=== PATIENT | male | born 1980 | race Caucasian/White ===

== ENCOUNTER 2024-04-26 12:16 | Emergency (ER) | payer SELFPAY ==
[2024-04-26 12:18] VITALS: BP 109/69
[2024-04-26 13:33] VITALS: BMI 19.9
[2024-04-26] MEDS: OMNIPAQUE 50 ML PO (13:36)
[2024-04-26] MEDS: ZOFRAN 4 MG IV (13:46)
[2024-04-26 13:48] LABS: % Basophils 0.3 % (0-2); % Eosinophils 1.1 % (0-6); % Immature Granulocytes 0.3 % (0-0.5); % Lymphocytes 18.4 % (20.5-51.1); % Monocytes 7.2 % (1.7-9.3); % Neutrophils 72.7 % (42.2-75.2); Absolute Eosinophils 0.1 10^3/uL (0-0.7); Absolute Lymphocytes 1.7 10^3/uL (1.2-3.4); Absolute Monocytes 0.7 10^3/uL (0.1-0.6); Absolute Neutrophils 6.6 10^3/uL (1.4-6.5); Hematocrit 39.3 % (39.0-52.0); Hemoglobin 13.5 g/dL (13.0-18.0); Mean Corp Hgb Conc. 34.4 g/dL (33.0-37.0); Mean Corpuscular Hgb 29.2 pg (27.0-31.0); Mean Corpuscular Volume 84.9 fL (80.0-94.0); Mean Platelet Volume 11.1 fL (7.4-10.4); Nucleated Red Blood Cells % 0 % (-); Platelet Count 176 10^3/uL (130-400); Red Blood Cell Count 4.63 10^6/uL (4.70-6.10); Red Cell Dist. Width 13.2 % (11.5-14.5); White Blood Cell Count 9.1 10^3/uL (4.8-10.8)
[2024-04-26 13:53] LABS: Urine Albumin Negative (Neg - Trace); Urine Bilirubin Negative (Negative); Urine Character Clear (Clear); Urine Color Yellow; Urine Glucose Negative (Negative); Urine Ketone Negative (Negative); Urine Leukocyte Negative (Negative); Urine Nitrite Negative (Negative); Urine Occult Blood Negative (Negative); Urine Urobilinogen Negative (Neg - 1+)
--- NOTE | 2024-04-26 14:01 | ED.GENMED ---
History of Present Illness
General
Chief Complaint: Abdominal Symptoms
Source: patient
Exam Limitations: none
Time Seen by Provider: 04/26/24 12:51
Nursing documentation reviewed up to this point in time: agreed with
History of Present Illness
History of Present Illness:
pt is a 44 y/o M with no chronic PMH
here with L sided lower abd pain a few days ago
he thinks it started after lifting his son but isn't totally sure. it was mild initially and has become worse, with nausea and pain radiating to the back. he has had increased pain with walking today.
then while urinating in the bathroom here for a sample, he noticed whil standing that he had a bulge in his L inguinal region. after he urinated it went away
he is not tender in this area
he didn't notice it any other day but while here
no testicular pain, urinary sypmtoms, vomiting, diarrhea, fever, hematuria
no h/o kidey stones
no STI sypmtoms
Past History
Past History
ED Past Medical History: None
ED Past Surgical History: None
Review of Systems
Review of Systems
Allergies reviewed?: Yes
All Other Systems: Not applicable
Phy Exam
Physical Exam
Physical Exam:
GENERAL: Alert , in no apparent distress
HEAD: NCAT
EYE: pupils equal and reactive, no nystagmus, photophobia
NECK: Supple,full rom, nontender
ENT: o/p clr, mmm.
CARDIAC: Regular rate and rhythm . no edema
LUNGS: Clear breath sounds bilaterally, no acute respiratory distress, no wheezes/rales/rhonchi
ABDOMEN: Soft, without focal tenderness, no r/g, no cvat
flat nondistended, no masses, nontender
; normal inspection
no appreciated hernia defect
no epididymal tenderness
no masses
no testicular tenderness
NEUROLOGICAL: Alert and orientedx 4, cn intact, no facial asymmetry, 5/5 strength in UE/LE, sensation intact, romberg neg, ambulates without assistance, neg pronator drift
SKIN: Warm and dry, skin intact.
MUSCULOSKELETAL: No edema, well perfused.
PSYCH: Normal and appropriate interaction.
Course
Orders/Labs/Results
Orders:
Orders
04/26/24 13:18
CT Abd/pel W Iv And Oral Contr Urgent
Comment:
Reason For Exam: LLQ pain to back, ? hernia
Iohexol [Omnipaque] See Protocol PO NOW STA
04/26/24 13:32
Complete Blood Count/With Diff Urgent
Comprehensive Metabolic Panel Urgent
04/26/24 13:34
Urinalysis Reflex To Culture Urgent
Date Specimen was Collected: 04/26/24
Time Specimen was Collected: 13:34
04/26/24 13:44
Ondansetron Injectable [Zofran] 4 mg IV NOW STA
04/26/24 17:16
Ketorolac [Toradol] 30 mg IV NOW STA
04/26/24 17:21
US Groin (Imaging Only) LT Urgent
Comment:
Reason For Exam: L inguinal hernia eval
Abnormal Lab Results
04/26/24
13:32
RBC 4.63 L 10^6/uL
(4.70-6.10)
MPV 11.1 H fL
(7.4-10.4)
Absolute Neuts (auto) 6.6 H 10^3/uL
(1.4-6.5)
Absolute Monos (auto) 0.7 H 10^3/uL
(0.1-0.6)
Lymphocytes % 18.4 L %
(20.5-51.1)
04/26/24 13:32
04/26/24 13:32
Vital Signs
Initial and Last Documented VS:
Initial Vital Signs
Temp Pulse Resp BP Pulse Ox
98.2 F 66 18 109/69 100
04/26/24 12:18 04/26/24 12:18 04/26/24 12:18 04/26/24 12:18 04/26/24 12:18
Last Documented Vital Signs
Temp Pulse Resp BP Pulse Ox
98.2 F 67 18 110/80 98
04/26/24 12:18 04/26/24 19:25 04/26/24 19:25 04/26/24 19:25 04/26/24 19:25
MDM/Problems Addressed
Differential Diagnosis Includes:
hernia, groin strain, MSK pain, divetic, bowel obstructoin, constipation
MDM/Problems Addressed:
44 y/o M
no pmh
says he thinks he started with mild LLQ pain last week when he lifted his son. i has been there with movement and walking but then today radiated to back and was assoc with nausea.
he has not had any diarrhea, constpiation, fever, urinary syptmoms, testicular pain/swelling
he did noticed while int he ER when he went to provide urine sample that there was a 'bulge' in his L groin and was wondering if this was the cause of his pain. he did not notice the lump until being here and he no longer feels it afte rurinating.
he had no difficulty urinating.
on exam he really has no abdominal tednerenss, no obvious hernia defect, no testicular tendenress or swelling, normal skin inspection; no obiovus MAGDA
labs are reassuring
but i did eval with CT scan with po and iv contrast which did not make it all the way down to the LLQ making it a very limited study for hernia
ultimately he had no signs of obstruction an dwas going to be discharged but when i reexamined him he said he felt another lupm in L groin and was tender there
US shows he had small MAGDA in this region
no obovius source of infection
the MAGDA is small
recommend nsaids, stool stofteners and f/u with pcp,.
*Critical Care Note
Total Time (30-74mins, 75-104mins- exclusive of procedures): Not Applicable
ED Attending Note
-
Portions of this chart may have been created with voice recognition software.� Occasional wrong word or��sound alike� substitutions may have occurred due to the inherent limitations of voice recognition software.
Discharge Plan
Departure
Patient Disposition: Home (Routine Discharge)
Date of Disposition: 04/26/24
Time of Disposition: 18:58
Patient with high blood pressure during this ER visit?: No
Condition: Fair
Covid-19: Not Applicable
Discharge Problem:
Abdominal pain
Instructions: Abdominal Pain
Referrals:
NONE,* [Family Provider] -
Activity Restrictions/Additional Instructions:
WE ARE NOT SURE THE CAUSE OF YOUR ABDOMINAL PAIN
YOUR BLOOD WORK, URINE AND CAT SCAN SHOWED NO CONCERNING CAUSES
YOU HAD SOME GAS IN YOUR COLON BUT NO SIGNS OF HERNIA OR BOWEL OBSTRUCTION
YOUR ULTRASOUND ALSO SHOWED NO HERNIA
YOU DO HAVE SMALL LYMPH NODES IN THIS AREA BUT THIS IS NONSPECIFIC
YOU CAN TRY METAMUCIL STOOL SOFTENER TO BE SRUE YOU ARE HAVING REGULAR BOWEL MOVEMENTS AND YOU ARE NOT STRAINING
EAT BLAND DIET TODAY
FOLLOW UP WITH YOUR DOCTOR FOR PERSISTENT SYMPTOMS OR IF YOU FEEL ANOTHER BULGE IN YOUR ABDOMEN
RETURN FO RANY CONCERNS.
Interventions
Interventions:
*Risk Screen - Suicide Last Done: 04/26/24 12:18
*General Assessment Last Done: 04/26/24 12:18
*Neglect/Abuse Screening Last Done: 04/26/24 13:37
*ED COVID-19 Vaccine History Last Done: 04/26/24 13:37
*Nursing Disposition Last Done: 04/26/24 19:25
HR-Tligqg-Mboatiqizh Assessment Last Done: 04/26/24 13:54
Discharge Date and Time
Discharge Date/Time: 04/26/24 19:26
Print Language: ARMENIAN
[2024-04-26 14:05] LABS: ALT (SGPT) 16 U/L (0-50); AST (SGOT) 22 U/L (17-59); Albumin 4.5 g/dl (3.5-5.0); Alkaline Phosphatase 45 U/L (38-126); Blood Urea Nitrogen 16 mg/dl (9-20); Calcium 9.3 mg/dl (8.4-10.2); Carbon Dioxide 26 mmol/L (22-30); Chloride 102 mmol/L (98-107); Estimated Creatinine Clearance 103 ml/min; Glucose 98 mg/dl (70-99); Potassium 4.5 mmol/L (3.5-5.1); Sodium 140 mmol/L (135-145); Total Bilirubin 0.3 mg/dl (0.2-1.3); eGFR > 60.00
[2024-04-26] MEDS: TORADOL 30 MG IV (17:24)
[2024-04-26 19:25] VITALS: BP 110/80
== END 2024-04-26 19:26 | disposition home or self-care (01) ==
LOC: EMR 12:16
PROVIDERS: Physician Assistant; EMERGENCY PHYSICIAN Emergency Medicine
DX: R10.32 Left lower quadrant pain (principal)
CPT/HCPCS: 96374; 96375; 99284; 74177; 76882; 80053; 81003; 85025; Q9967